=== PATIENT | female | born 1940 | race Caucasian/White ===

== ENCOUNTER 2016-07-26 16:33 | Emergency (ER) | payer BC ==
[2016-07-26 16:57] VITALS: BP 152/84; PULSE 92; TEMP 97.5; BMI 24.3
[2016-07-26] MEDS ORDERED: DIPHTH,PERTUSS(ACELL),TET 0.5 ML DISP.SYRIN IM ONE (17:49)
--- NOTE | 2016-07-26 17:50 | PDOC ---
History of Present Illness - General Chief Complaint: Injury Stated Complaint: RT HAND LACERATION Time Seen by Provider: 07/26/16 17:32 History Source: Patient Exam Limitations: No Limitations - History of Present Illness Initial Comments: 07/26/16 17:56 76 yr female with right index finger laceration using Ninja tool at home. bleeding controlled.. Pt asking for tetanus booster. allergy to PCN and Reglan. Past History - Past Medical History Allergies/Adverse Reactions: Allergies Allergy/AdvReac Type Severity Reaction Status Date / Time metoclopramide HCl Allergy Verified 07/26/16 16:57 [From Reglan] Penicillins Allergy Verified 07/26/16 16:57 Cardiac Disorders: Yes (ARRYTHMIA) HTN: Yes Thyroid Disease: Yes - Psycho/Social/Smoking Cessation Hx Anxiety: No Suicidal Ideation: No Smoking History: Former smoker Have you smoked in the past 12 months: No Information on smoking cessation initiated: No Hx Alcohol Use: No Drug/Substance Use Hx: No Review of Systems - Review of Systems Able to Perform ROS?: Yes Is the patient limited [place] proficient: No Integumentary: Yes: Symptoms Reported *Physical Exam - Vital Signs Last Vital Signs Temp Pulse Resp BP Pulse Ox 97.5 F L 92 H 20 152/84 07/26/16 16:52 07/26/16 16:52 07/26/16 16:52 07/26/16 16:52 - Physical Exam General Appearance: Yes: Nourished, Appropriately Dressed HEENT: positive: EOMI, YANY Extremity: positive: Normal Capillary Refill, Normal Range of Motion, Other ( distal tip right index with 0.5cm superficial laceration ). negative: Tender Procedures - Laceration/Wound Repair Right Distal 2nd digit Wound Length: to 2.5 cm Wound Explored: clean Wound's Depth, Shape: superficial Betadine Prep: Yes Wound Repaired With: Dermabond Medical Decision Making - Medical Decision Making 07/26/16 17:58 cc: fingertip laceration no active bleeding will dermabond close and update tetanus pt has FROM of the finger nv intact no deficit 07/26/16 18:01 *DC/Admit/Observation/Transfer Diagnosis at time of Disposition: Laceration of finger - Discharge Dispostion Disposition: HOME Condition at time of disposition: Improved - Referrals Referrals: Lorena Rizo MD [Primary Care Provider] - - Patient Instructions Printed Discharge Instructions: DI for Laceration Repair With Dermabond Additional Instructions: keep dry for at least the next 24hrs then you can briefly get wet the glue will peel off in about one week
== END 2016-07-26 17:56 | disposition home or self-care (01) ==
LOC: JER 16:33 → JERFT 16:33
PROC: 0HQFXZZ Repair Right Hand Skin, External Approach (ICD-10-PCS; principal; 2016-07-26)
DX: S61.210A Laceration without foreign body of right index finger without damage to nail, initial encounter (principal); W29.0XXA Contact with powered kitchen appliance, initial encounter; Y93.G1 Activity, food preparation and clean up; Y92.030 Kitchen in apartment as the place of occurrence of the external cause
CPT/HCPCS: 12001-25; 90715; 99281-25

== ENCOUNTER 2017-01-29 06:34 | Emergency (ER) | payer BC ==
[2017-01-29 07:23] VITALS: TEMP 98.8; BMI 23.3
--- NOTE | 2017-01-29 07:58 | PDOC ---
History of Present Illness - General Chief Complaint: Respiratory Stated Complaint: S.O.B. Time Seen by Provider: 01/29/17 07:52 - History of Present Illness Initial Comments: 01/29/17 07:58 Ms. 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 She says that she is also having some pain in her right lower back when she coughs. The patient denies chest pain, shortness of breath, headache and dizziness. Denies nausea, vomit, diarrhea and constipation. Denies dysuria, frequency, urgency and hematuria. Allergies: Penicillins, reglan 01/29/17 08:02 Past History - Past Medical History Allergies/Adverse Reactions: Allergies Allergy/AdvReac Type Severity Reaction Status Date / Time metoclopramide HCl Allergy Verified 01/29/17 07:21 [From Reglan] Penicillins Allergy Verified 01/29/17 07:21 Home Medications: Ambulatory Orders Amlodipine Bes/Olmesartan Med [Ana Maria 10-40 mg Tablet] 1 each PO DAILY 01/29/17 Atenolol [Tenormin -] 25 mg PO DAILY 01/29/17 Benzonatate [Tessalon Pearls -] 100 mg PO TID #21 capsule 01/29/17 Levofloxacin [Levaquin] 500 mg PO DAILY #14 tablet 01/29/17 Levothyroxine [Synthroid -] 75 mcg PO DAILY 01/29/17 Cardiac Disorders: Yes (ARRYTHMIA) COPD: No HTN: Yes Thyroid Disease: Yes Other medical history: ARTHRITIS, SCIATICA - Suicide/Smoking/Psychosocial Hx Smoking History: Former smoker Have you smoked in the past 12 months: No If you are a former smoker, when did you quit?: 40 YRS Information on smoking cessation initiated: No Hx Alcohol Use: No Drug/Substance Use Hx: No Review of Systems - Review of Systems Comments:: 01/29/17 08:02 GENERAL/CONSTITUTIONAL: +1 day subjective fevers and chills. No weakness. HEAD, EYES, EARS, NOSE AND THROAT: No change in vision. No ear pain or discharge. No sore throat. CARDIOVASCULAR: No chest pain or shortness of breath RESPIRATORY: +1 day dry cough with associated right lower back pain. No wheezing , or hemoptysis. GASTROINTESTINAL: No nausea, vomiting, diarrhea or constipation. GENITOURINARY: No dysuria, frequency, or change in urination. MUSCULOSKELETAL: No joint or muscle swelling or pain. No neck or back pain. SKIN: No rash NEUROLOGIC: No headache, vertigo, loss of consciousness, or change in strength/ sensation. ENDOCRINE: No increased thirst. No abnormal weight change HEMATOLOGIC/LYMPHATIC: No anemia, easy bleeding, or history of blood clots. ALLERGIC/IMMUNOLOGIC: No hives or skin allergy. 01/29/17 08:03 *Physical Exam - Vital Signs Last Vital Signs Temp Pulse Resp BP Pulse Ox 98.8 F 97 H 20 111/62 95 01/29/17 07:17 01/29/17 07:17 01/29/17 07:17 01/29/17 07:17 01/29/17 07:17 - Physical Exam Comments: 01/29/17 08:04 GENERAL: Awake, alert, and fully oriented, in no acute distress HEAD: No signs of trauma, normocephalic, atraumatic EYES: PERRLA, EOMI, sclera anicteric, conjunctiva clear ENT: Auricles normal inspection, hearing grossly normal, nares patent, oropharynx clear without exudates. Moist mucosa NECK: Normal ROM, supple, no lymphadenopathy, JVD, or masses LUNGS: No distress, speaks full sentences, clear to auscultation bilaterally HEART: Regular rate and rhythm, normal S1 and S2, no murmurs, rubs or gallops, peripheral pulses normal and equal bilaterally. ABDOMEN: Soft, nontender, normoactive bowel sounds. No guarding, no rebound. No masses EXTREMITIES: Normal inspection, Normal range of motion, no edema. No clubbing or cyanosis. NEUROLOGICAL: Cranial nerves II through XII grossly intact. Normal speech, normal gait, no focal sensorimotor deficits SKIN: Warm, Dry, normal turgor, no rashes or lesions noted. Medical Decision Making - Medical Decision Making 01/29/17 09:20 Segmental Right upper lobe pneumonia noted on CXR. Discussed case with patient' s PCP; requested 500 IV levaquin and then home on same. Will comply with instructions. 01/29/17 09:50 Levaquin and Tessalon maribeth Rx sent to patient pharmacy. Will have patient follow-up in clinic on Friday as requested by PCP. *DC/Admit/Observation/Transfer Diagnosis at time of Disposition: Pneumonia Qualifiers: Pneumonia type: due to unspecified organism Laterality: right Lung location: upper lobe of lung Qualified Code(s): J18.1 - Lobar pneumonia, unspecified organism - Discharge Dispostion Disposition: HOME - Prescriptions Prescriptions: Benzonatate [Tessalon Pearls -] 100 mg PO TID #21 capsule Levofloxacin [Levaquin] 500 mg PO DAILY #14 tablet - Referrals Referrals: Lorena Rizo MD [Primary Care Provider] - - Patient Instructions Printed Discharge Instructions: DI for Pneumonia -- Adult - Post Discharge Activity
[2017-01-29] MEDS ORDERED: guaiFENesin 200 MG/10 ML 10 ML UNIT-DOSE CUPS PO ONE (08:19)
[2017-01-29] MEDS ORDERED: guaiFENesin/D-METHORPHAN HB 10 ML UNIT-DOSE CUPS ONE (08:40)
--- NOTE | 2017-01-29 09:16 | PDOC ---
Attending Attestation - Resident Resident Name: Jatin Ying - ED Attending Attestation I have performed the following: I have examined & evaluated the patient, The case was reviewed & discussed with the resident, I agree w/resident's findings & plan, Exceptions are as noted - HPI HPI: 76 yo F history Rony thyroiditis pressents with 1 day history fever, chills , and cough. She notes some discomfort to R mid back when coughing. Denies cp, SOB, vomiting, diarrhea. - Physicial Exam PE: GENERAL: Awake, alert, and fully oriented, in no acute distress. Well-appearing. HEAD: No signs of trauma EYES: PERRLA, EOMI, sclera anicteric, conjunctiva clear ENT: Auricles normal inspection, hearing grossly normal, nares patent, oropharynx clear without exudates. Moist mucosa NECK: Normal ROM, supple, no lymphadenopathy, JVD, or masses LUNGS: Breath sounds equal, clear to auscultation bilaterally. No wheezes, and no crackles HEART: Regular rate and rhythm, normal S1 and S2, no murmurs, rubs or gallops ABDOMEN: Soft, nontender, normoactive bowel sounds. No guarding, no rebound. No masses EXTREMITIES: Normal range of motion, no edema. No clubbing or cyanosis. No cords, erythema, or tenderness NEUROLOGICAL: Cranial nerves II through XII grossly intact. Normal speech, normal gait SKIN: Warm, Dry, normal turgor, no rashes or lesions noted. - Medical Decision Making Pt well-appearing, no signs of sepsis. Vitals stable, O2 Sat wnl. Will d/w PMD, likely DC home on PO antibiotics for pna.
[2017-01-29] MEDS ORDERED: LEVOFLOXACIN 500 MG IVPB 500 MG/100 ML BAG IVPB ONE ×2 (09:21→09:32)
[2017-01-29 10:23] VITALS: BP 106/74; PULSE 88
== END 2017-01-29 10:51 | disposition home or self-care (01) ==
LOC: JER 06:34
DX: J18.1 Lobar pneumonia, unspecified organism (principal); I10 Essential (primary) hypertension; I49.9 Cardiac arrhythmia, unspecified; R00.2 Palpitations; E06.3 Autoimmune thyroiditis; M12.9 Arthropathy, unspecified; M54.40 Lumbago with sciatica, unspecified side
CPT/HCPCS: 71020-TC; 87804; 99283-25

== ENCOUNTER 2021-04-19 12:23 | Emergency (ER) | payer BC ==
[2021-04-19 13:34] VITALS: TEMP 97.9; BMI 21.6
[2021-04-19] MEDS ORDERED: SOTROVIMAB 500 MG in SODIUM CHLORIDE 100 ML IVPB ONE (14:28)
[2021-04-19 16:52] VITALS: BP 147/74; PULSE 70
== END 2021-04-19 17:22 | disposition home or self-care (01) ==
LOC: JER 12:23 → JCOVINFU 12:23
DX: U07.1 COVID-19 (principal)
CPT/HCPCS: 99284-25; M0247; Q0247

== ENCOUNTER 2023-02-18 15:50 | Inpatient (IN) | payer BC ==
[2023-02-18 17:38] LABS: BASO % 0.6 % (0-2.0); EOS % 0.5 % (0-4.5); HEMATOCRIT 33.8 % (32.4-45.2); HEMOGLOBIN 11.1 GM/dL (10.7-15.3); LYMPH % 7.5 % (8-40); MCH 30.6 pg (25.7-33.7); MCHC 32.9 g/dl (32.0-36.0); MEAN CELL VOLUME 93.1 fl (80-96); MEAN PLT VOLUME 7.5 fl (7.5-11.1); MONO % 3.9 % (3.8-10.2); NEUT % 87.5 % (42.8-82.8); PLATELET COUNT 472 10^3/uL (134-434); RBC 3.63 M/mm3 (3.60-5.2)
[2023-02-18 17:59] LABS: POTASSIUM 3.5 mmol/L (3.5-5.1)
[2023-02-18 18:01] LABS: ALBUMIN 2.1 g/dl (3.4-5.0); BLOOD UREA NITROGEN 46.6 mg/dL (7-18); CALCIUM 8.6 mg/dL (8.5-10.1)
[2023-02-18 18:04] LABS: CREATININE 1.5 mg/dL (0.55-1.3)
[2023-02-18 18:06] LABS: BILIRUBIN,TOTAL 0.4 mg/dL (0.2-1); TOT PROT 5.9 g/dl (6.4-8.2)
[2023-02-18 18:09] LABS: N-TERMINAL BNP 1075.1 pg/ml (5-450)
[2023-02-18] MEDS ORDERED: SODIUM CHLORIDE 500 ML IV STA (18:17)
[2023-02-18] MEDS ORDERED: CEFTRIAXONE 1 GM in DEXTROSE 5%-WATER - 50 ML IVPB ONE (19:19)
[2023-02-18] MEDS ORDERED: CEFTRIAXONE 1 GM/50 ML BAG ONE (19:26)
[2023-02-19] MEDS ORDERED: ACETAMINOPHEN 325 MG TABLET (FP) PO PRN (01:34)
[2023-02-19] MEDS ORDERED: DOCUSATE SODIUM 100 MG CAPSULE (FP) PO PRN (01:34)
[2023-02-19] MEDS ORDERED: BENZOCAINE/MENTHOL (CHLORASEPTIC ) LOZENGE MM PRN (07:40)
[2023-02-19] MEDS ORDERED: LEVOTHYROXINE NA 75 MCG TABLET (FP) ONE (08:03)
[2023-02-19] MEDS: LEVOTHYROXINE NA 75 MCG TABLET (FP) PO SCH (08:06)
[2023-02-19] MEDS ORDERED: CEFTRIAXONE 1 GM/50 ML BAG ONE (09:17)
[2023-02-19] MEDS ORDERED: HEPARIN NA (PORCINE) 5,000 UNITS/ML 1ML VIAL ONE (09:17)
[2023-02-19] MEDS: guaiFENesin 600 MG TABLET.ER (FP) PO SCH ×2 (09:33→22:01)
[2023-02-19] MEDS: CEFTRIAXONE 1 GM in DEXTROSE 5%-WATER - 50 ML IVPB SCH (09:33)
[2023-02-19] MEDS: HEPARIN NA (PORCINE) 5,000 UNITS/ML 1ML VIAL SQ SCH ×2 (09:33→22:01)
[2023-02-19] MEDS ORDERED: FUROSEMIDE 40 MG/4 ML INJECTABLE VIAL ONE (10:25)
[2023-02-19] MEDS: FUROSEMIDE 40 MG/4 ML INJECTABLE VIAL IVPUSH SCH (10:32)
[2023-02-19] MEDS ORDERED: ALBUTEROL SO4 2.5/IPRATROPIUM 0.5 INH SOL 3 ML VIAL.NEB. NEB PRN (10:44)
[2023-02-19] MEDS: BENZONATATE 100 MG CAPSULE PO SCH (14:28)
[2023-02-19 18:55] VITALS: BMI 24.2
[2023-02-19] MEDS ORDERED: MELATONIN 5 MG TABLETS PO PRN (21:26)
[2023-02-20] MEDS: BENZONATATE 100 MG CAPSULE PO SCH ×5 (06:28→22:12)
[2023-02-20] MEDS: LEVOTHYROXINE NA 75 MCG TABLET (FP) PO SCH (06:32)
[2023-02-20 07:30] LABS: HEMATOCRIT 30.7 % (32.4-45.2); HEMOGLOBIN 10.4 GM/dL (10.7-15.3); MCH 32.3 pg (25.7-33.7); MEAN CELL VOLUME 95.2 fl (80-96); MEAN PLT VOLUME 7.5 fl (7.5-11.1); PLATELET COUNT 470 10^3/uL (134-434); RBC 3.23 M/mm3 (3.60-5.2); RDW 13.8 % (11.6-15.6); WHITE BLOOD COUNT 13.3 K/mm3 (4.0-10.0)
[2023-02-20 07:58] LABS: POTASSIUM 3.9 mmol/L (3.5-5.1)
[2023-02-20 08:16] LABS: CALCIUM 8.6 mg/dL (8.5-10.1)
[2023-02-20 08:17] LABS: BLOOD UREA NITROGEN 28.2 mg/dL (7-18)
[2023-02-20 08:20] LABS: CREATININE 1.1 mg/dL (0.55-1.3)
[2023-02-20 09:01] LABS: ANISOCYTOSIS 0; MACROCYTOSIS 0
[2023-02-20] MEDS: CEFTRIAXONE 1 GM in DEXTROSE 5%-WATER - 50 ML IVPB SCH (09:34)
[2023-02-20] MEDS: HEPARIN NA (PORCINE) 5,000 UNITS/ML 1ML VIAL SQ SCH ×2 (09:35→23:08)
[2023-02-20] MEDS: FUROSEMIDE 40 MG/4 ML INJECTABLE VIAL IVPUSH SCH (09:35)
[2023-02-20] MEDS: guaiFENesin 600 MG TABLET.ER (FP) PO SCH ×2 (09:35→22:03)
[2023-02-20] MEDS: ATENOLOL 25 MG TABLET (FP) PO SCH (11:06)
[2023-02-21] MEDS: LEVOTHYROXINE NA 100 MCG TABLET (FP) PO SCH (06:55)
[2023-02-21] MEDS: BENZONATATE 100 MG CAPSULE PO SCH ×3 (06:57→21:33)
[2023-02-21] MEDS: FUROSEMIDE 40 MG/4 ML INJECTABLE VIAL IVPUSH SCH (11:05)
[2023-02-21] MEDS: CEFTRIAXONE 1 GM in DEXTROSE 5%-WATER - 50 ML IVPB SCH (11:05)
[2023-02-21] MEDS: ATENOLOL 25 MG TABLET (FP) PO SCH (11:06)
[2023-02-21] MEDS: guaiFENesin 600 MG TABLET.ER (FP) PO SCH (11:06)
[2023-02-21] MEDS: HEPARIN NA (PORCINE) 5,000 UNITS/ML 1ML VIAL SQ SCH ×2 (11:06→21:32)
[2023-02-21 19:01] VITALS: RESP 18
[2023-02-22] MEDS: guaiFENesin 600 MG TABLET.ER (FP) PO SCH ×2 (00:09→09:40)
[2023-02-22] MEDS: BENZONATATE 100 MG CAPSULE PO SCH (06:17)
[2023-02-22] MEDS: LEVOTHYROXINE NA 100 MCG TABLET (FP) PO SCH (06:18)
[2023-02-22 07:23] LABS: BASO % 0.7 % (0-2.0); EOS % 3.9 % (0-4.5); HEMATOCRIT 29.5 % (32.4-45.2); HEMOGLOBIN 9.9 GM/dL (10.7-15.3); MCH 31.9 pg (25.7-33.7); MCHC 33.6 g/dl (32.0-36.0); MEAN CELL VOLUME 94.9 fl (80-96); MEAN PLT VOLUME 6.6 fl (7.5-11.1); MONO % 7.3 % (3.8-10.2); NEUT % 71.1 % (42.8-82.8); PLATELET COUNT 497 10^3/uL (134-434); RBC 3.11 M/mm3 (3.60-5.2); WHITE BLOOD COUNT 11.1 K/mm3 (4.0-10.0)
[2023-02-22 07:36] LABS: POTASSIUM 3.8 mmol/L (3.5-5.1)
[2023-02-22 07:43] LABS: ALBUMIN 2.2 g/dl (3.4-5.0); CALCIUM 8.9 mg/dL (8.5-10.1)
[2023-02-22 07:48] LABS: BILIRUBIN,TOTAL 0.4 mg/dL (0.2-1)
[2023-02-22 09:17] VITALS: BP 132/74; PULSE 84; TEMP 98.4
[2023-02-22] MEDS: CEFTRIAXONE 1 GM in DEXTROSE 5%-WATER - 50 ML IVPB SCH (09:39)
[2023-02-22] MEDS: HEPARIN NA (PORCINE) 5,000 UNITS/ML 1ML VIAL SQ SCH (09:40)
[2023-02-22] MEDS: ATENOLOL 25 MG TABLET (FP) PO SCH (09:40)
== END 2023-02-22 13:00 | disposition home or self-care (01) | DRG 193 ==
LOC: JER 15:50 → JERBED 02-19 01:06 → J4W 02-19 18:43
PROVIDERS: ADMIT Internal Medicine; ATTEND Internal Medicine
DX: J18.9 Pneumonia, unspecified organism (principal); I50.31 Acute diastolic (congestive) heart failure; N17.9 Acute kidney failure, unspecified; I48.91 Unspecified atrial fibrillation; I11.0 Hypertensive heart disease with heart failure; I50.9 Heart failure, unspecified; I49.9 Cardiac arrhythmia, unspecified; E06.3 Autoimmune thyroiditis
CPT/HCPCS: 0241U-QW; 36415; 71045-TC-FY; 71275-TC; 80048; 80053; 83735; 83880; 84443; 84484; 85025; 87040; 87070; 87205; 87899; 93005; 93010; 93306-TC; 97116-GP; 97162-GP; 99285-25; J1644; Q9967

== ENCOUNTER 2023-03-14 14:34 | Emergency (ER) | payer BC ==
[2023-03-14 15:01] VITALS: BMI 23.0
[2023-03-14] MEDS ORDERED: ACETAMINOPHEN 1000 MG/100 ML BAG IVPB ONE (16:06)
[2023-03-14] MEDS ORDERED: ACETAMINOPHEN INJECTION 100 ML IVPB ONE (16:11)
[2023-03-14 16:16] LABS: HEMOGLOBIN 12.2 GM/dL (10.7-15.3); MCH 31.7 pg (25.7-33.7); MCHC 33.1 g/dl (32.0-36.0); MEAN CELL VOLUME 95.8 fl (80-96); MEAN PLT VOLUME 7.4 fl (7.5-11.1); PLATELET COUNT 354 10^3/uL (134-434); RBC 3.86 M/mm3 (3.60-5.2); RDW 15.1 % (11.6-15.6); WHITE BLOOD COUNT 11.1 K/mm3 (4.0-10.0)
[2023-03-14 16:26] LABS: INR 0.97 (0.83-1.09); PROTHROMBIN TIME (PATIENT) 11.3 SEC (9.7-13.0)
[2023-03-14 16:28] LABS: ACTIVATED PTT 27.3 SECONDS (25.2-36.5)
[2023-03-14 16:42] LABS: POTASSIUM 3.7 mmol/L (3.5-5.1)
[2023-03-14 16:44] LABS: CALCIUM 10.1 mg/dL (8.5-10.1)
[2023-03-14 16:45] LABS: ALBUMIN 3.5 g/dl (3.4-5.0); BLOOD UREA NITROGEN 17.9 mg/dL (7-18)
[2023-03-14 16:48] LABS: CREATININE 1.1 mg/dL (0.55-1.3)
[2023-03-14 16:49] LABS: TOT PROT 7.8 g/dl (6.4-8.2)
[2023-03-14 16:50] LABS: BILIRUBIN,TOTAL 0.2 mg/dL (0.2-1)
[2023-03-14 16:57] LABS: ANISOCYTOSIS 2+; MACROCYTOSIS 0; OVALOCYTE 1+
[2023-03-14 17:17] LABS: EPI CELLS 6 /uL (0-25.1); HYALINE CASTS 0 /uL (0-3.1); URINE APPEARANCE CLEAR; URINE BACTERIA 6 /uL (0-1359); URINE BILIRUBIN NEGATIVE (NEGATIVE); URINE COLOR YELLOW; URINE GLUCOSE (UA) NEGATIVE (NEGATIVE); URINE KETONE NEGATIVE (NEGATIVE); URINE LEUK ESTERASE NEGATIVE (NEGATIVE); URINE NITRITE NEGATIVE (NEGATIVE); URINE PROTEIN 2+ (NEGATIVE); URINE RBC 14 /uL (0-23.9); URINE UROBILINOGEN 0.2 mg/dL (0.2-1.0); URINE WBC 13 /uL (0-25.8)
[2023-03-14] MEDS ORDERED: LIDOCAINE 5% TOPICAL PATCH TP ONE (17:36)
[2023-03-14] MEDS ORDERED: LIDOCAINE 4% PATCH TP ONE (18:02)
[2023-03-14 19:15] VITALS: BP 148/78; PULSE 90; RESP 16; TEMP 97.6
== END 2023-03-14 19:14 | disposition home or self-care (01) ==
LOC: JER 14:34
PROC: 3E033NZ Introduction of Analgesics, Hypnotics, Sedatives into Peripheral Vein, Percutaneous Approach (ICD-10-PCS; principal; 2023-03-14)
DX: R10.9 Unspecified abdominal pain (principal); R05.9 Cough, unspecified; Z20.822 Contact with and (suspected) exposure to COVID-19
CPT/HCPCS: 0241U-QW; 36415; 71045-TC-FY; 80053; 81003; 84484; 85025; 85610; 85730; 87086; 93005; 93010; 99285-25